=== PATIENT | female | born 1950 | race Caucasian/White ===

== ENCOUNTER → 2016-12-09 | Outpatient (CLI) | payer BC ==
[2016-03-22 14:51] VITALS: BP 129/83
--- NOTE | 2016-12-09 10:01 | RAD ---
HISTORY: Wheezing Study: Chest two-view Comparison: September 29, 2015 Findings: The trachea is midline. The cardiac silhouette is unremarkable. The lungs are clear without focal infiltrate or effusion. The bony thorax is unremarkable. There is a large hiatal hernia present. IMPRESSION: 1. No acute cardiopulmonary disease. 2. Large hiatal hernia Reported By:
== END ==
LOC: RAD 09:08
PROVIDERS: ATTEND Nurse Practitioner Family
DX: R06.2 Wheezing (principal); K44.9 Diaphragmatic hernia without obstruction or gangrene
CPT/HCPCS: 71020

== ENCOUNTER → 2016-12-30 | Outpatient (CLI) | payer BC ==
[2016-03-22 14:51] VITALS: BP 129/83
--- NOTE | 2016-12-30 12:36 | VAS ---
HISTORY: Right leg pain Study: Doppler ultrasound of the deep veins of the right leg Comparison: None TECHNIQUE: Multiple prabhakar scale and color flow Doppler images of the deep venous system were obtaine d of the right lower extremity. FINDINGS: The deep venous system of the right lower extremity was evaluated from the level of the common femor al vein through the popliteal vein. Normal color flow and augmentation can be observed. In additio n, normal compression is seen throughout the deep venous system. IMPRESSION: 1. Negative for DVT. Reported By:
== END ==
LOC: RAD 08:55
PROVIDERS: ATTEND Nurse Practitioner Family
DX: M79.604 Pain in right leg (principal)
CPT/HCPCS: 93971

== ENCOUNTER → 2017-09-28 | Outpatient (CLI) | payer OTHER ==
[2016-03-22 14:51] VITALS: BP 129/83
--- NOTE | 2017-09-28 19:27 | RAD ---
Examination: Thoracic spine, AP and lateral views History: Back pain Comparison 06/21/2016 Findings: Degenerative thoracic spondylosis at multiple levels with slight thoracic scoliosis. No acu te findings or significant interval change. Impression: No change; no acute process. Multilevel degenerative thoracic spondylosis. Reported By:
== END ==
LOC: RAD 16:57
PROVIDERS: ATTEND Psychiatry & Neurology Neurology
DX: M47.894 Other spondylosis, thoracic region (principal)
CPT/HCPCS: 72072

== ENCOUNTER → 2017-12-06 | Outpatient (CLI) | payer OTHER ==
[2016-03-22 14:51] VITALS: BP 129/83
--- NOTE | 2017-12-06 11:57 | US ---
HISTORY: Right upper quadrant pain and nausea Study: Right upper quadrant abdominal ultrasound Comparison: None Technique: Multiple images of the right upper quadrant were obtained. Findings: The liver measures approximately 16.0 cm. Increased echogenicity throughout the liver suggests fatty infiltration. Correlate clinically as other causes of hepatic disease may produce a similar appearanc e. The right kidney measures 7.8 x 5.5 x 3.8 cm. No sonographic evidence of hydronephrosis is identif ied. No shadowing echogenic stones are noted within the gallbladder. Gallbladder wall thickness is wi thin normal limits measuring 2.4 mm. The common bile duct is within normal limits in caliber measurin g 2.4 mm. The pancreas was incompletely visualized. IMPRESSION: Sonographic findings of hepatic steatosis. Small right renal size. Reported By:
== END ==
LOC: RAD 08:49
PROVIDERS: ATTEND Psychiatry & Neurology Neurology
DX: R10.11 Right upper quadrant pain (principal)
CPT/HCPCS: 76705

== ENCOUNTER → 2017-12-13 | Outpatient (CLI) | payer OTHER ==
[2016-03-22 14:51] VITALS: BP 129/83
--- NOTE | 2017-12-13 11:56 | NM ---
HISTORY: Epigastric pain. Pain between shoulder blades and nausea for several months. Study: Nuclear medicine HIDA scan with ejection fraction Comparison: Ultrasound from December 06, 2017. Technique: Multiple scintigraphic images of the abdomen were obtained the intravenous administration of 5.5 mCi of technetium labeled Choletec. Following distention of the gallbladder with radiotracer, 8 oz of Ensure was administered orally. An estimated gallbladder ejection fraction was calculated based on the resulting physiologic response. Findings: Homogeneous uptake of radiotracer is seen throughout the liver. The intrabiliary ductal system is ob served normally. The common hepatic and common bile duct are unremarkable with normal biliary-bowel transit. The gallbladder is observed to fill normally. After administration of Ensure, a gallbladder ejection fraction of 12.8% (normal > 35%) is observed. IMPRESSION: 1. Normal hepatobiliary imaging scan. 2. Abnormal gallbladder ejection fraction of 12.8%. Clinical correlation for gallbladder dyskinesia or cholecystitis is recommended. Reported By:
== END ==
LOC: RAD 09:23
PROVIDERS: ATTEND Psychiatry & Neurology Neurology
DX: R10.13 Epigastric pain (principal)
CPT/HCPCS: 78227; A9537

== ENCOUNTER → 2017-12-14 | Outpatient (CLI) | payer OTHER ==
[2016-03-22 14:51] VITALS: BP 129/83
--- NOTE | 2017-12-15 06:07 | RAD ---
Examination: Chest, PA and lateral views History: Preop Comparison reference 12/09/2016 Findings: Continued normal heart size with clear lungs and pleural spaces. A very large hiatal hernia is present, most of the stomach appearing to be within the chest. Impression: No change; no acute findings. Large intrathoracic hiatal hernia Reported By:
== END ==
LOC: RAD 17:13
PROVIDERS: ATTEND Surgery
DX: Z01.811 Encounter for preprocedural respiratory examination (principal); R10.84 Generalized abdominal pain; R11.0 Nausea; K44.9 Diaphragmatic hernia without obstruction or gangrene
CPT/HCPCS: 71046

== ENCOUNTER 2017-12-20 09:17 | Day surgery (SDC) | payer OTHER ==
[2017-12-20] MEDS ORDERED: D5 LR 1000 ML 1,000 ML IV ONE (09:40)
[2017-12-20] MEDS ORDERED: DIPRIVAN VIAL 20 ML ONE (10:18)
[2017-12-20 10:55] VITALS: BP 120/81
== END 2017-12-20 11:05 | disposition home or self-care (01) ==
LOC: SURG1 09:17
PROVIDERS: ATTEND Surgery
PROC: 0DJ08ZZ Inspection of Upper Intestinal Tract, Via Natural or Artificial Opening Endoscopic (ICD-10-PCS; principal; 2017-12-20 11:15)
PROC: 0DB68ZX Excision of Stomach, Via Natural or Artificial Opening Endoscopic, Diagnostic (ICD-10-PCS; principal; 2017-12-20 11:15)
DX: R10.84 Generalized abdominal pain (principal); R11.0 Nausea; K44.9 Diaphragmatic hernia without obstruction or gangrene; K21.0 Gastro-esophageal reflux disease with esophagitis; K29.60 Other gastritis without bleeding
CPT/HCPCS: A4217; J3490; J7120

== ENCOUNTER 2018-02-01 20:20 | Observation (INO) ==
[2018-02-01 20:41] VITALS: BMI 32.8
[2018-02-01 20:59] LABS: BASOPHILS % (AUTO) 0.7 % (0.2-1.0); EOSINOPHILS # (AUTO) 0.2 x10^3/uL (0.0-0.2); EOSINOPHILS % (AUTO) 4.4 % (0.9-2.9); HEMATOCRIT 38.2 % (36.0-47.0); HEMOGLOBIN 12.9 g/dL (12.0-16.0); LYMPHOCYTES # (AUTO) 2.4 X10^3/uL (1.3-2.9); LYMPHOCYTES % (AUTO) 43.5 % (21.0-51.0); MEAN CORPUSCULAR HEMOGLOBIN 29.7 pg (27.0-34.0); MEAN CORPUSCULAR HGB CONC 33.9 g/dL (33.0-35.0); MEAN CORPUSCULAR VOLUME 87.6 fL (80.0-100.0); MEAN PLATELET VOLUME 7.2 fL (7.4-11.0); MONOCYTES # (AUTO) 0.5 x10^3/uL (0.3-0.8); MONOCYTES % (AUTO) 8.7 % (0.0-13.0); NEUTROPHILS # (AUTO) 2.3 x10^3/uL (2.2-4.8); NEUTROPHILS % (AUTO) 42.7 % (42.0-75.0); PLATELET COUNT 324 X10^3/uL (150.0-450.0); RED BLOOD COUNT 4.36 X10^6/uL (3.5-5.4); RED CELL DISTRIBUTION WIDTH 14.1 % (11.6-16.5); WHITE BLOOD COUNT 5.4 X10^3/uL (3.6-10.0)
[2018-02-01 21:09] LABS: BLOOD UREA NITROGEN 7 mg/dL (7-18); CALCIUM 8.8 mg/dL (8.5-10.1); CARBON DIOXIDE 27.8 mmol/L (21-32); CHLORIDE 105 mmol/L (98-107); CREATININE 0.95 mg/dL (0.55-1.02); SODIUM 141 mmol/L (136-145); eGFR NON BLACK RACES > 60 (>60)
--- NOTE | 2018-02-01 21:20 | RAD ---
HISTORY: Abdominal pain status post cholecystectomy. Study: Acute abdominal series Comparison: Chest x-ray dated December 09, 2016. Findings: The trachea is midline. The cardiac silhouette is unremarkable. Low lung volumes with left lower lo be atelectasis versus early infiltrate and suggestion of a small pleural effusion. The right lung is otherwise clear. No obvious pneumothorax. Large hiatal hernia. The bony thorax is unremarkable. Flat plate and upright evaluation of the abdomen demonstrates a nonspecific/nonobstructive bowel gas pattern with air and stool to the level of the rectum. Postsurgical changes status post recent cholec ystectomy. No obvious free air. No pathological soft tissue mass or calcification can be observed. T he bony structures are grossly intact. IMPRESSION: 1. Left lower lobe atelectasis versus early infiltrate with suggestion of a small pleural effusion. 2. No evidence for acute abdominal pathology identified. Reported By:
[2018-02-01 22:11] LABS: ALBUMIN 3.4 g/dL (3.4-5.0); BILIRUBIN,DIRECT 0.07 mg/dL (0-0.2); TOTAL PROTEIN 6.9 g/dL (6.4-8.2)
--- NOTE | 2018-02-02 00:28 | DR.GENAD ---
HPI - PCP Primary Care Physician: bassem david - Complaint/Symptoms Chief Complaint Doctors Comments: Patient presents with complaint of dyspnea. She had a brenda on yesterday. Denies fever, vomiting or diarrhea. Chief Complaint:: pt states" i had my gallbladder removed yesterday and i'm having such sharp pain it is causing me to get SOB" - Source History Provided: Patient - Mode of Arrival Mode of Arrival: Wheelchair - Timing Onset of Chief Complaint: 02/01/18 PMH - PMH Past Medical History: Yes Past Medical History: Anemia Past Surgical History: Yes Surgical History: Angioplasty/Stents, Cholecystectomy, [employer] Surgery, Hysterectomy - Family History History of Family Medical Conditions: Yes Family Medical History: Cancer, [place], Coronary Artery Disease, Hypertension - Social History Does any household member use tobacco: No Alcohol Use: None Do you use any recreational Drugs:: No Lives With: Spouse Lives Where: Home - infectious screening In the last 2 months have you had wt loss of >10#?: NO Have you had fever, night sweats or hemotysis?: No Have you traveled outside the country in the last 6 months?: No Isolation: Standard ROS - Review of Systems Constitutional: No Symptoms Reported Eyes: No Symptoms Reported ENTM: No Symptoms Reported Respiratoy: No Symptoms Reported Cardiovascular: No Symptoms Reported Gastrointestinal/Abdominal: Abdominal Pain (prior surgery) Genitourinary: No Symptoms Reported Neurological: No Symptoms Reported Musculoskeletal: No Symptoms Reported Integumentary: No Symptoms Reported Hematologic/Lymphatic: No Symptoms Reported Endocrine: No Symptoms Reported Psychiatric: No Symptoms Reported All Other Systems: Reviewed and Negative PE - General Limitations: No Limitations General Appearance: Alert, In No Apparent Distress - Head Head Exam: Normal Inspection, Atraumatic - Eyes Eye exam: Normal Appearance, PERRL, EOMI - ENT ENT Exam: Normal Exam External Ear Exam: Normal External Inspection TM/Canal Exam: Bilateral Normal Nose Exam: Normal Nose Exam Mouth Exam: Normal Inspection Throat Exam: Normal Inspection - Neck Neck Exam: Normal Inspection - Chest Chest Inspection: Normal Inspection - Respiratory Respiratory Exam: Normal Lung Sounds Bilat Respiratory Exam: Bilateral Clear to Auscultation - Cardiovascular Cardiovascular Exam: Regular Rate - Abdominal Exam Abdominal Exam: Normal Inspection, Hypoactive Bowel Sounds Abdominal Tenderness: RLQ, LUQ - Extremities Extremities Exam: Normal Inspection, Full ROM - Back Back Exam: Normal Inspection, Full ROM - Neurologic Neurological Exam: Alert, Oriented X3, CN II-XII Intact - Psychiatric Psychiatric Exam: Normal Affect, Normal Mood - Skin Skin Exam: Warm, Dry, Intact - Vital Signs Vitals: Temperature 99.1 F Pulse Rate 72 Respiratory Rate 18 Blood Pressure [Left Arm] 119/71 Blood Pressure [Right Arm] 128/83 Blood Pressure 131/71 O2 Sat by Pulse Oximetry 98 Course - Reevaluation 1st: Improved - Consultation Called: 01:00 (Dr Galo agreed to admit for further evalaution and treatment) ROR - Labs Reviewed Result Diagrams: 02/01/18 20:52 02/01/18 20:52 - Other Results Comments: Patient evaluated by surgeor Dr Garza no surgical pathology noted. - XRAY XRAY Interpreted by: Radiologist (Acute Abd Series: The trachea is midline. The cardiac silhouette is unremarkable. Low lung volumes with left lower lobe atelectasis versus early infiltrate and suggestion of a small pleural effusion. The right lung is otherwise clear. No obvious pneumothorax. Large hiatal hernia. The bony thorax is unremarkable. Flat plate and upright evaluation of the abdomen demonstrates a nonspecific/nonobstructive bowel gas pattern with air and stool to the level of the rectum. Postsurgical changes status post recent cholecystectomy. No obvious free air. No pathological soft tissue mass or calcification can be obserrved. The bony structures are grossly intact. Impression: Left lower lobe atelectasis versus early infiltrate with suggestion of a small pleural effusion. No evidence for acute abdominal pathology identified.CTA: Contrast bolus timing is adequate for detection of PTE. No pulmonary thrombolus is identified. There is no pulmonary arterial dilatation or evidence of right heart strainn. The heart is normal in size without pericaridal effusion. The thoracic aorta and proximal great vessels are normal in contour andcaliber. The central airways are patent. There is no mediastinal or hilar lymphadenopathy. There is a massive hiatal hernai within the left inferior chest which contains fat as well as the majority of the stomach as well as a long segment ofthe distal transverse colon. There is moderate associated compressive atelectasis and consolidation of the left lower lobe. Mild susegmental atelectasis of the right lower lobe is also noted. The remainder of the lungs are clear. No significant pleural effusion or penumothorax is identified. Postsurgical changes related to recent cholecystectomy are noted. Limited images of the upper abdomen are otherwise urremarkable. No aggressive osseous lesions are identified. Impression: No PFE identified. Massive left sided hiatal hernia which contains the majority of the stomach, fat as well as a long segment of the transverse colon with moderate associated compressive atelectasis and consolidation of the left lower lobe. Superimposed pneumonia is difficult to exclude and clinical correlqation is necessary.) - Labs Reviewed Laboratory: WBC 5.4 X10^3/uL (3.6-10.0) 02/01/18 20:52 RBC 4.36 X10^6/uL (3.5-5.4) 02/01/18 20:52 Hgb 12.9 g/dL (12.0-16.0) 02/01/18 20:52 Hct 38.2 % (36.0-47.0) 02/01/18 20:52 MCV 87.6 fL (80.0-100.0) 02/01/18 20:52 MCH 29.7 pg (27.0-34.0) 02/01/18 20:52 MCHC 33.9 g/dL (33.0-35.0) 02/01/18 20:52 RDW 14.1 % (11.6-16.5) 02/01/18 20:52 Plt Count 324 X10^3/uL (150.0-450.0) 02/01/18 20:52 MPV 7.2 fL (7.4-11.0) L 02/01/18 20:52 Neut % (Auto) 42.7 % (42.0-75.0) 02/01/18 20:52 Lymph % (Auto) 43.5 % (21.0-51.0) 02/01/18 20:52 [place] % (Auto) 8.7 % (0.0-13.0) 02/01/18 20:52 Eos % (Auto) 4.4 % (0.9-2.9) H 02/01/18 20:52 Baso % (Auto) 0.7 % (0.2-1.0) 02/01/18 20:52 Neut # (Auto) 2.3 x10^3/uL (2.2-4.8) 02/01/18 20:52 Lymph # (Auto) 2.4 X10^3/uL (1.3-2.9) 02/01/18 20:52 [place] # (Auto) 0.5 x10^3/uL (0.3-0.8) 02/01/18 20:52 Eos # (Auto) 0.2 x10^3/uL (0.0-0.2) 02/01/18 20:52 Baso # (Auto) 0.0 X10^3/uL (0.0-0.1) 02/01/18 20:52 Absolute Nucleated RBC 0.0 /100WBC 02/01/18 20:52 D-Dimer 901 ng/mL (0-400) H* 02/01/18 20:52 Sodium 141 mmol/L (136-145) 02/01/18 20:52 Corrected Sodium TNP 02/01/18 20:52 Potassium 3.6 mmol/L (3.5-5.1) 02/01/18 20:52 Chloride 105 mmol/L (98-107) 02/01/18 20:52 Carbon Dioxide 27.8 mmol/L (21-32) 02/01/18 20:52 BUN 7 mg/dL (7-18) 02/01/18 20:52 Creatinine 0.95 mg/dL (0.55-1.02) 02/01/18 20:52 Est GFR (MDRD) Af Amer > 60 (>60) 02/01/18 20:52 Est GFR (MDRD) Non-Af > 60 (>60) 02/01/18 20:52 Glucose 110 mg/dL (65-99) H 02/01/18 20:52 Calcium 8.8 mg/dL (8.5-10.1) 02/01/18 20:52 Total Bilirubin 0.30 mg/dL (0.2-1.0) 02/01/18 20:52 Direct Bilirubin 0.07 mg/dL (0-0.2) 02/01/18 20:52 Indirect Bilirubin 0.23 mg/dL (0.2-0.8) 02/01/18 20:52 AST 46 Units/L (15-37) H 02/01/18 20:52 ALT 43 Units/L (12-78) 02/01/18 20:52 Alkaline Phosphatase 59 Units/L (46-116) 02/01/18 20:52 C-Reactive Protein 23.60 mg/L (0-3.0) H 02/01/18 20:52 Total Protein 6.9 g/dL (6.4-8.2) 02/01/18 20:52 Albumin 3.4 g/dL (3.4-5.0) 02/01/18 20:52 Globulin 3.5 g/dL (2.5-4.5) 02/01/18 20:52 Albumin/Globulin Ratio 1.0 Ratio (1.1-2.1) L 02/01/18 20:52 - Diagnosis Discharge Problem: Atelectasis, left Left lower lobe pneumonia Qualifiers: Pneumonia type: due to unspecified organism Qualified Code(s): J18.1 - Lobar pneumonia, unspecified organism - Discharge Plan Disposition: ADMITTED INPATIENT Condition: Stable - Follow ups/Referrals Follow ups/Referrals: Bassem David [Primary Care Provider] - 3 days - Instructions
[2018-02-02] MEDS ORDERED: MORPHINE SULFATE INJ 4 MG IVP ONE (00:44)
[2018-02-02] MEDS ORDERED: MORPHINE SULFATE INJ 4 MG ONE (00:45)
[2018-02-02] MEDS ORDERED: LEVAQUIN PREMIX IV 750 MG 750 MG/150 ML BAG IV ONE (01:04)
--- NOTE | 2018-02-02 01:25 | CT ---
CTA chest Indication: Sharp chest pain and shortness of breath Technique: Helical CT images of the chest were obtained with IV contrast. Reformatted images in the c oronal and sagittal planes and 3D MIP images were also generated for review. Comparison: None Findings: Contrast bolus timing is adequate for detection of PTE. No pulmonary thromboembolus is iden tified. There is no pulmonary arterial dilatation or evidence of right heart strain. The heart is nor mal in size without pericardial effusion. The thoracic aorta and proximal great vessels are normal in contour and caliber. The central airways are patent. There is no mediastinal or hilar lymphadenopath y. There is a massive hiatal hernia within the left inferior chest which contains fat as well as the jeancarlos ority of the stomach as well as a long segment of the distal transverse colon. There is moderate asso ciated compressive atelectasis and consolidation of the left lower lobe. Mild subsegmental atelectasi s of the right lower lobe is also noted. The remainder of the lungs are clear. No significant pleural effusion or pneumothorax is identified. Postsurgical changes related to recent cholecystectomy are noted. Limited images of the upper abdomen are otherwise unremarkable. No aggressive osseous lesions are identified. Impression: No PTE identified. Massive left-sided hiatal hernia which contains the majority of the stomach, fat as well as a long se gment of the transverse colon with moderate associated compressive atelectasis and consolidation of t he left lower lobe. Superimposed pneumonia is difficult to exclude and clinical correlation is necess annita. Reported By:
[2018-02-02] MEDS ORDERED: TUSSIONEX PENNKINETIC SUSP PO PRN (01:42)
[2018-02-02] MEDS ORDERED: SALINE 3% 15 ML NEB TX ONE (01:58)
[2018-02-02] MEDS ORDERED: NS 1/2 1000 ML IV 1,000 ML IV SCH (02:00)
[2018-02-02] MEDS ORDERED: SALINE 3% 15 ML NEB TX NEB ONE (02:02)
[2018-02-02] MEDS ORDERED: NS 1/2 1000 ML IV 1,000 ML IV ONE (02:49)
[2018-02-02] MEDS ORDERED: MAALOX or MYLANTA PO PRN (04:40)
[2018-02-02] MEDS: DUONEB 0.5 MG/3 MG NEB SCH ×2 (05:40→09:40)
[2018-02-02] MEDS ORDERED: TYLENOL 325 MG TAB PO PRN (05:45)
[2018-02-02] MEDS ORDERED: ZOFRAN INJ 4 MG VIAL IVP PRN (08:48)
--- NOTE | 2018-02-02 09:20 | DR.PROGNOT ---
Hospital Progress Notes - Progress Note for Day of: Progress Note Date: 02/02/18 - Chief Complaint Chief Complaint: less abdominal pain , no nausea or vomiting . afebrile and passing flatus . no SOB or CP. - Past Medical Family Social History Past Med/Fam/Surg Hx: No changes since H&P Allergies: Allergies No Known Drug Allergies Allergy (Verified 02/02/18 00:00) - Review Of Systems ROS: No change since H&P - Vital Signs Vital Signs: Temperature 98.1 F Pulse Rate [Right] 81 Pulse Rate 72 Respiratory Rate 18 Blood Pressure [Left Arm] 94/53 Blood Pressure [Right Arm] 128/83 Blood Pressure 131/71 O2 Sat by Pulse Oximetry 98 - Physical Exam Oriented: Normal Eyes: Normal Ear: Normal Nose: Normal Throat: Normal Respiratory: Left, Diminished Cardiovascular: Normal : Normal GI:Auscultation: Normal GI:Palpation: Normal GI: Tenderness: RLQ, Mild (mild Rt side tenderness) Speech Pattern: Clear, Appropriate - Laboratory and Diagnostics Result Diagrams: 02/01/18 20:52 02/01/18 20:52 Labs: Laboratory WBC 5.4 X10^3/uL (3.6-10.0) 02/01/18 20:52 RBC 4.36 X10^6/uL (3.5-5.4) 02/01/18 20:52 Hgb 12.9 g/dL (12.0-16.0) 02/01/18 20:52 Hct 38.2 % (36.0-47.0) 02/01/18 20:52 MCV 87.6 fL (80.0-100.0) 02/01/18 20:52 MCH 29.7 pg (27.0-34.0) 02/01/18 20:52 MCHC 33.9 g/dL (33.0-35.0) 02/01/18 20:52 RDW 14.1 % (11.6-16.5) 02/01/18 20:52 Plt Count 324 X10^3/uL (150.0-450.0) 02/01/18 20:52 MPV 7.2 fL (7.4-11.0) L 02/01/18 20:52 Neut % (Auto) 42.7 % (42.0-75.0) 02/01/18 20:52 Lymph % (Auto) 43.5 % (21.0-51.0) 02/01/18 20:52 [place] % (Auto) 8.7 % (0.0-13.0) 02/01/18 20:52 Eos % (Auto) 4.4 % (0.9-2.9) H 02/01/18 20:52 Baso % (Auto) 0.7 % (0.2-1.0) 02/01/18 20:52 Neut # (Auto) 2.3 x10^3/uL (2.2-4.8) 02/01/18 20:52 Lymph # (Auto) 2.4 X10^3/uL (1.3-2.9) 02/01/18 20:52 [place] # (Auto) 0.5 x10^3/uL (0.3-0.8) 02/01/18 20:52 Eos # (Auto) 0.2 x10^3/uL (0.0-0.2) 02/01/18 20:52 Baso # (Auto) 0.0 X10^3/uL (0.0-0.1) 02/01/18 20:52 Absolute Nucleated RBC 0.0 /100WBC 02/01/18 20:52 D-Dimer 901 ng/mL (0-400) H* 02/01/18 20:52 Sodium 141 mmol/L (136-145) 02/01/18 20:52 Corrected Sodium TNP 02/01/18 20:52 Potassium 3.6 mmol/L (3.5-5.1) 02/01/18 20:52 Chloride 105 mmol/L (98-107) 02/01/18 20:52 Carbon Dioxide 27.8 mmol/L (21-32) 02/01/18 20:52 BUN 7 mg/dL (7-18) 02/01/18 20:52 Creatinine 0.95 mg/dL (0.55-1.02) 02/01/18 20:52 Est GFR (MDRD) Af Amer > 60 (>60) 02/01/18 20:52 Est GFR (MDRD) Non-Af > 60 (>60) 02/01/18 20:52 Glucose 110 mg/dL (65-99) H 02/01/18 20:52 Lactic Acid 1.3 mmol/L (0.4-2.0) 02/02/18 01:24 Calcium 8.8 mg/dL (8.5-10.1) 02/01/18 20:52 Total Bilirubin 0.30 mg/dL (0.2-1.0) 02/01/18 20:52 Direct Bilirubin 0.07 mg/dL (0-0.2) 02/01/18 20:52 Indirect Bilirubin 0.23 mg/dL (0.2-0.8) 02/01/18 20:52 AST 46 Units/L (15-37) H 02/01/18 20:52 ALT 43 Units/L (12-78) 02/01/18 20:52 Alkaline Phosphatase 59 Units/L (46-116) 02/01/18 20:52 C-Reactive Protein 23.60 mg/L (0-3.0) H 02/01/18 20:52 Total Protein 6.9 g/dL (6.4-8.2) 02/01/18 20:52 Albumin 3.4 g/dL (3.4-5.0) 02/01/18 20:52 Globulin 3.5 g/dL (2.5-4.5) 02/01/18 20:52 Albumin/Globulin Ratio 1.0 Ratio (1.1-2.1) L 02/01/18 20:52 - Assessment and Plan 1: improving abdominal pain . mild atelectasis LLL. large hiatal hernia ,. will follow in the pffice - Problem Patient Problems: Patient Problems Atelectasis, left (Acute) J98.11 Left lower lobe pneumonia (Acute) J18.1
[2018-02-02] MEDS ORDERED: ZOFRAN INJ 4 MG VIAL ONE (09:25)
[2018-02-02] MEDS: ROBITUSSIN DM PO SCH ×2 (09:27→12:22)
[2018-02-02 12:08] VITALS: BP 97/52
--- NOTE | 2018-02-02 12:39 | VAS ---
HISTORY: Extremity pain, swelling, and edema Study: Bilateral lower extremity Doppler venous ultrasound. Comparison: none. TECHNIQUE: Multiple prabhakar scale and color flow Doppler images of the deep venous system were obtained of the right and left lower extremity. FINDINGS: The deep venous system of the right and left lower extremities were evaluated from the lev el of the common femoral veins through the popliteal veins, bilaterally. Normal color flow and augme ntation can be observed. In addition, normal compression is seen throughout the deep venous system. No Evans's cyst is seen. IMPRESSION: 1. Negative examination for DVT. Reported By:
== END 2018-02-02 15:19 | disposition home or self-care (01) ==
LOC: OBS 20:29 → ER 20:29 → OBS 02-02 02:12
PROVIDERS: ADMIT Internal Medicine; ATTEND Internal Medicine
DX: I10 Essential (primary) hypertension; K59.09 Other constipation; R10.84 Generalized abdominal pain; R79.82 Elevated C-reactive protein (CRP); I25.10 Atherosclerotic heart disease of native coronary artery without angina pectoris; R06.02 Shortness of breath; J98.11 Atelectasis; G89.18 Other acute postprocedural pain; R79.1 Abnormal coagulation profile; J18.8 Other pneumonia, unspecified organism; K21.9 Gastro-esophageal reflux disease without esophagitis; J44.9 Chronic obstructive pulmonary disease, unspecified
CPT/HCPCS: 36415; 71275; 74022; 80048; 80076; 83605; 85025; 85378; 86140; 87040; 93970; 94640; 94760; 96365; 96374; 99283; 99284; A4222; G0378; J1956; J2270; J2405; J3490; J7620